=== PATIENT | female | born 1985 | race Caucasian/White ===

== ENCOUNTER 2023-06-18 07:02 | Emergency (ER) | payer BC ==
[~2023-06-18] VITALS: Ht 162.6 cm; Wt 92.7 kg
[2023-06-18] MEDS ORDERED: GLUCOPHAGE PO (07:09)
[2023-06-18] MEDS ORDERED: PAXIL40 M1 PO (07:10)
[2023-06-18] MEDS ORDERED: ZESTRIL5 M1 PO (07:10)
[2023-06-18] MEDS ORDERED: LEVO-T50 MCG PO (07:10)
[2023-06-18] MEDS ORDERED: ATORVASTATIN CA40 MG PO (07:11)
[2023-06-18] MEDS ORDERED: HYDROXYZINE HCL25 M1 PO (07:11)
[2023-06-18] MEDS ORDERED: COLACE100 M1 PO (07:12)
[2023-06-18] MEDS ORDERED: MOUNJARO5 MG/0.5 M SQ (07:50)
[2023-06-18 07:55] LABS: HEMATOCRIT 40.6 % (37.0-47.0); HEMOGLOBIN 14.4 g/dL (12.5-16.0); MEAN CELL VOLUME 92 fl (78-100); MEAN CORPUSCULAR HEMOGLOBIN 33 pg (27-31); MEAN CORPUSCULAR HGB CONC 36 g/dL (33-37); MEAN PLATELET VOLUME 9.6 fl (7.4-10.4); PLATELET COUNT 255 K/mm3 (130-400); RED BLOOD COUNT 4.43 M/mm3 (4.10-5.30); RED CELL DISTRIBUTION WIDTH 12.6 % (11.5-14.5); WHITE BLOOD COUNT 8.1 K/mm3 (4.8-10.8)
[2023-06-18 08:02] LABS: ALBUMIN 3.3 g/dL (3.5-5.0)
[2023-06-18 08:03] LABS: SODIUM 138 mmol/L (136-145)
[2023-06-18 08:04] LABS: CALCIUM 8.3 mg/dL (8.3-10.5)
[2023-06-18 08:05] LABS: GLUCOSE 173 mg/dL (65-105); TOTAL PROTEIN 6.4 g/dL (6.4-8.3)
[2023-06-18 08:06] LABS: CARBON DIOXIDE 20 mmol/L (22-29)
[2023-06-18 08:07] LABS: TOTAL BILIRUBIN 0.3 mg/dL (0.2-1.2)
[2023-06-18 08:10] LABS: AST-SGOT 9 U/L (5-34)
[2023-06-18 08:12] LABS: ALT/SGPT 12 U/L (0-55)
[2023-06-18 08:15] LABS: D-DIMER 0.31 mg/L FEU (0.15-0.50)
[2023-06-18 08:40] LABS: TROPONIN-I < 0.030 ng/mL (<0.030)
[2023-06-18 08:54] LABS: LYMPHOCYTE 18 % (20-51); MONOCYTE 6 % (3-10); NEUTROPHILS 55 % (42-75)
[2023-06-18 10:53] VITALS: BP 125/73
== END 2023-06-18 09:50 | disposition home or self-care (01) ==
LOC: ED 07:02
PROVIDERS: Nurse Practitioner
DX: R07.89 Other chest pain (principal); F41.9 Anxiety disorder, unspecified; E86.0 Dehydration; Z87.19 Personal history of other diseases of the digestive system
CPT/HCPCS: J2405; J7030

== ENCOUNTER 2023-12-21 16:27 | Emergency (ER) | payer BC ==
[~2023-12-21 16:27] MED LIST: ATORVASTATIN CA40 MG PO; COLACE100 M1 PO; GLUCOPHAGE PO; HYDROXYZINE HCL25 M1 PO; LEVO-T50 MCG PO; MOUNJARO5 MG/0.5 M SQ; PAXIL40 M1 PO; ZESTRIL5 M1 PO; fentaNYL 100 MCG/2 ML VIAL IV ONE
== END 2023-12-21 22:49 | disposition home or self-care (01) ==
LOC: ED 16:27
DX: G97.1 Other reaction to spinal and lumbar puncture (principal); R11.2 Nausea with vomiting, unspecified
CPT/HCPCS: J3010

== ENCOUNTER 2024-01-22 04:26 | Emergency (ER) | payer BC ==
[~2024-01-22 04:26] MED LIST changes: -fentaNYL 100 MCG/2 ML VIAL IV ONE
[2024-01-22 04:38] VITALS: BP 102/70
[2024-01-22] MEDS ORDERED: NS 1,000 ML IV ONE ×2 (05:15→08:45)
[2024-01-22 05:40] LABS: ALBUMIN 3.4 g/dL (3.5-5.0)
[2024-01-22 05:41] LABS: CALCIUM 8.7 mg/dL (8.3-10.5)
[2024-01-22 05:42] LABS: TOTAL PROTEIN 6.7 g/dL (6.4-8.3)
[2024-01-22 05:44] LABS: TOTAL BILIRUBIN 0.3 mg/dL (0.2-1.2)
[2024-01-22 05:56] LABS: BASO # 0.01 K/mm3 (0.02-0.10); EOS # 0.04 K/mm3 (0.04-0.40); EOS % 0.3 % (1.0-5.0); HEMATOCRIT 44.1 % (37.0-47.0); HEMOGLOBIN 15.1 g/dL (12.5-16.0); LYMPH# 1.02 K/mm3 (1.50-4.00); MEAN CELL VOLUME 96 fl (78-100); MEAN CORPUSCULAR HEMOGLOBIN 33 pg (27-31); MEAN CORPUSCULAR HGB CONC 34 g/dL (33-37); MEAN PLATELET VOLUME 10.4 fl (7.4-10.4); MONO # 0.45 K/mm3 (0.20-0.80); NEU # 13.96 K/mm3 (1.40-6.50); PLATELET COUNT 266 K/mm3 (130-400); RED BLOOD COUNT 4.58 M/mm3 (4.10-5.30); RED CELL DISTRIBUTION WIDTH 12.5 % (11.5-14.5); WHITE BLOOD COUNT 15.5 K/mm3 (4.8-10.8)
[2024-01-22 06:35] LABS: PH-URINE 5.5 (5.0 - 8.0); URINE APPEARANCE CLEAR (CLEAR); URINE BILIRUBIN 1+ (NEGATIVE); URINE BLOOD NEGATIVE (NEGATIVE); URINE COLOR YELLOW (YELLOW); URINE GLUCOSE NEGATIVE (NEGATIVE); URINE KETONE NEGATIVE (NEGATIVE); URINE LEUKOCYTE ESTERASE NEGATIVE (NEGATIVE); URINE NITRATE NEGATIVE (NEGATIVE); URINE PROTEIN(semi-quant) 2+ (NEGATIVE)
[2024-01-22 06:36] LABS: URINE MUCUS PRESENT (NOT PRESENT)
[2024-01-22] MEDS ORDERED: Iohexol 300 - 100 ML VIAL IV ONE (08:04)
== END 2024-01-22 12:13 | disposition home or self-care (01) ==
LOC: ED 04:26
PROVIDERS: Family Medicine
DX: K80.20 Calculus of gallbladder without cholecystitis without obstruction (principal)
CPT/HCPCS: J7030; Q9967